=== PATIENT | male | born 1980 | race Caucasian/White ===

== ENCOUNTER 2020-09-24 13:34 | Outpatient (REF) | payer OTHER, SELFPAY | END 2020-09-24 13:35 | disposition home or self-care (01) | LOC: HO.BBR 13:34 | PROVIDERS: PCP Hospitalist; Visit Provider Internal Medicine | DX: Z13.89 Encounter for screening for other disorder (principal) ==

== ENCOUNTER 2020-09-24 14:49 | Outpatient (REF) | payer SELFPAY ==
[2020-09-24 16:23] LABS: Cholesterol 194 mg/dL
== END 2020-09-24 14:50 | disposition home or self-care (01) ==
LOC: HO.LNC 14:49
PROVIDERS: Visit Provider Pathology Anatomic Pathology & Clinical Pathology
DX: Z13.89 Encounter for screening for other disorder (principal)
CPT/HCPCS: 36415; 82465

== ENCOUNTER 2021-04-01 14:03 | Outpatient (REF) | payer OTHER, SELFPAY | END 2021-04-01 14:04 | disposition home or self-care (01) | LOC: HO.BBR 14:03 | PROVIDERS: PCP Hospitalist; Visit Provider Internal Medicine | DX: Z13.89 Encounter for screening for other disorder (principal) ==

== ENCOUNTER 2022-06-04 10:52 | Outpatient (REF) | payer OTHER, SELFPAY | END 2022-06-04 10:53 | disposition home or self-care (01) | LOC: HO.BBR 10:52 | PROVIDERS: Visit Provider Internal Medicine | DX: Z13.89 Encounter for screening for other disorder (principal) ==

== ENCOUNTER 2022-10-30 13:54 | Outpatient (REF) | payer OTHER, SELFPAY | END 2022-10-30 13:55 | disposition home or self-care (01) | LOC: HO.BBR 13:54 | PROVIDERS: PCP Hospitalist; Visit Provider Internal Medicine | DX: Z13.89 Encounter for screening for other disorder (principal) ==

== ENCOUNTER 2023-03-12 11:57 | Outpatient (REF) | payer OTHER, SELFPAY | END 2023-03-12 11:58 | disposition home or self-care (01) | LOC: HO.BBR 11:57 | PROVIDERS: PCP Hospitalist; Visit Provider Internal Medicine | DX: Z13.89 Encounter for screening for other disorder (principal) ==

== ENCOUNTER 2023-10-15 13:59 | Outpatient (REF) | payer OTHER, SELFPAY | END 2023-10-15 14:00 | disposition home or self-care (01) | LOC: HO.BBR 13:59 | PROVIDERS: PCP Hospitalist; Visit Provider Internal Medicine | DX: Z13.89 Encounter for screening for other disorder (principal) ==

== ENCOUNTER 2024-04-07 12:53 | Outpatient (REF) | payer OTHER, SELFPAY | END 2024-04-07 12:54 | disposition home or self-care (01) | LOC: HO.BBR 12:53 | PROVIDERS: PCP Hospitalist; Visit Provider Internal Medicine | DX: Z13.89 Encounter for screening for other disorder (principal) ==

== ENCOUNTER 2024-09-08 14:52 | Outpatient (REF) | payer OTHER, SELFPAY | END 2024-09-08 14:53 | disposition home or self-care (01) | LOC: HO.BBR 14:52 | PROVIDERS: PCP Hospitalist; Visit Provider Internal Medicine | DX: Z13.89 Encounter for screening for other disorder (principal) ==

== ENCOUNTER 2025-04-27 13:59 | Outpatient (REF) | payer OTHER, SELFPAY ==
--- OUTSIDE RECORDS SUMMARY | 2024-05-24 11:08 | XMS_ITS | Encounter Summary ---
Author Organization [facility] Address [address] [place] [address] Care Team Providers Care Communications Associate Name Role Phone Bear Freitas MD Primary Care Provider [phone] Encounter Details Date Type Department Care Team (Late st Contact Info) Description 05/24/2024 11:08 AM EDT Hospital Encounter TH HISTORIC ENCOUNTERS [facility] ONLY Madison Gaspar MD [address] [place] [address] Social History Tobacco Use Types Packs/Day Years Used Date Smoking Tobacco: Never Smokeless Tobacco: Never Alcohol Use Standard Drinks/Week Comments Yes 0 (1 standard drink = 0.6 oz pur e alcohol) Sex and Gender Information Value Date Recorded Sex Assigned at Not on file Legal Sex Male 6:24 PM EST Gender Identity Not on file Sexual Orientation Not on file documented as of this encounter Last Filed Vital Signs Vital Sign Reading Time Taken Comments Blood Pressure 115/77 05/24/2024 11:51 AM EDT Sitting Left arm Pulse 80 05/24/2024 11:51 AM EDT Temperature - - Respiratory Rate - - Oxygen Saturation - - Inhaled Oxygen Concentration - - Weight 89.6 kg (197 lb 9.6 oz) 05/24/2024 11:51 AM EDT Height 182.9 cm (6') 08/30/2020 9:48 AM EST Body Mass Index 26.8 08/30/2020 9:48 AM EST documented in this encounter Progress Notes * Madison Gaspar MD - 05/24/2024 11:30 AM EDT CHIEF COMPLAINT: Follow-up IDENTIFIER:Angel Mccarthy is a 43 y.o. male. HPI: Patient is a very pleasant 43-year-old man, who has homozygous gene mutation for hemochromatosis gene (C282Y), has been on therapeutic phlebotomy every 6 months, tolerating without any major issues, recent labs showed normal iron stores as well as liver function ROS: GENERAL: No anorexia, weight loss, fatigue, fever, chills, night sweats HEENT: no headache or any visual symptom NECK: No discomfort or lumps. RESPIRATORY: No cough or shortness of breath CARDIOVASCULAR: No chest pain. GI: No abdominal discomfort, blood in stools or black stools MUSCULOSKELETAL: No joint pain or swelling, back pain, or muscle pain. HEMATOLOGY/LYMPHOLOGY No prolonged bleeding, easy bruisability or swollen nodes EXT: no significant swelling rash discomfort PAST MEDICAL HISTORY: Hemochromatosis Lumbar radiculopathy ?? SOCIAL HISTORY: Never smoker Drinks socially lives with his family ?? FAMILY HISTORY: Hemochromatosis No current outpatient medications on file. You are allergic to the following Date Reviewed: 05/24/2024 No active allergies PHYSICAL EXAM: BP 115/77 (BP Location: Left arm) Pulse 80 Temp 97.8 ??F (36.6 ??C) (Temporal) Wt 89.6 kg (197 lb 9.6 oz) SpO2 100% BMI 26.80 kg/m?? ECOG 0 APPEARANCE: Alert and in no acute distress EYES: nonicteric sclera pink conjunctiva ORAL CAVITY: No erythema or exudates NECK: Neck supple, no adenopathy, HEART: normal S1 and S2 LUNG: clear to auscultation bilaterally LYMPH NODES: No palpable superficial adenopathy ABDOMEN: soft, nontender and no organomegaly appreciated EXTREMITIES: Extremities warm and well perfused without clubbing, cyanosis, rash or edema NEURO: Oriented X 3, no significant neuro deficit LABS: WBC 6.9, hemoglobin 13.7 g, hematocrit 41.1%, MCV 96 and platelet count 219 TIBC 221, iron saturation 56% and ferritin 89 Normal liver function tests IMPRESSION: SNOMED CT(R) 1. Hereditary hemochromatosis (HCC) HEREDITARY HEMOCHROMATOSIS Patient is a very pleasant 43-year-old man who is very healthy has homozygous gene mutation for hemochromatosis (C282Y) patient has been on therapeutic phlebotomy every 6 months, toleratingwithout any major issues, I discussed with the patient again in detail about overload of iron and potential endorgan damage, his liver function is normal he has been tolerating phlebotomy every 6 months with decent control of his iron store as well as without any significant anemia so decision madeto continue therapeutic phlebotomy every 6 months PLAN: We will continue therapeutic phlebotomy every 6 months Return to office in 1 year or as needed Madison Gaspar MD documented in this encounter Plan of Treatment Upcoming Encounters Date Type Department Care Team (Late st Contact Info) Description 05/24/2025 11:30 AM EDT Office Visit [facility] Hematology Oncology [address] [place] [address] Madison Gaspar MD [address] [place] [address] documented as of this encounter Procedures Procedure Name Priority Date/Time Associated Diagnosis Comments ..MISCELLANEOUS REFERENCE LAB TEST 05/24/2024 ..MISCELLANEOUS REFERENCE LAB TEST 05/24/2024 documented in this encounter Results * Miscellaneous reference lab test (05/24/2024) Provider Onbase MD LAB BLOOD ORDERABLES Final Re sult * Miscellaneous reference lab test (05/24/2024) Provider Onbase MD LAB BLOOD ORDERABLES Final Re sult documented in this encounter Visit Diagnoses Not on filedocumented in this encounter Care Teams Communications Associate Relationship Specialty Start Date End Date Bear Freitas MD [address] [place] [id number] PCP - General Internal Medicine 07/03/20 documented as of this encounter
--- OUTSIDE RECORDS SUMMARY | 2025-04-27 14:35 | XMS_ITS | Clinical Summary ---
Author Organization [facility] Address [address] [place] [address] Care Team Providers Care Sea Foam Kiss Maker Name Role Phone Bear Freitas MD Primary Care Provider [phone] Social History Tobacco Use Types Packs/Day Years Used Date Smoking Tobacco: Never Smokeless Tobacco: Never Alcohol Use Standard Drinks/Week Comments Yes 0 (1 standard drink = 0.6 oz pur e alcohol) Sex and Gender Information Value Date Recorded Sex Assigned at Not on file Legal Sex Male 6:24 PM EST Gender Identity Not on file Sexual Orientation Not on file Obstetrics History Last Filed Vital Signs Vital Sign Reading [...] Mass Index 26.8 08/30/2020 9:48 AM EST Plan of Treatment Upcoming Encounters Date Type Department Care Team (Late st Contact Info) Description 05/24/2025 11:30 AM EDT Office Visit [facility] Hematology Oncology [address] [place] [address] Madison Gaspar MD [address] [place] [address] Health Maintenance Due Date Last Done Comments DTaP,Tdap,and Td Vaccines (1 - Tdap) 10/27/1999 Hepatitis B Vaccines (1 of 3 - 19+ 3-dose series) 10/27/1999 Cholesterol Screening (Lipid Panel) 08/01/2022 HIV Screening 08/01/2022 Hepatitis C Screening 08/01/2022 Medicare Annual Wellness Visit 08/01/2022 Social Influencers of Health Screening 08/01/2022 Depression Screening 08/23/2024 COVID-19 Vaccine (1 - 2023-2 5 season) 2025 Influenza Vaccine (#1) 2025 HIB Vaccines Aged Out No longer eligi ble based on patient's age to complete this topic HPV Vaccines Aged Out No longer eligi ble based on patient's age to complete this topic Hepatitis A Vaccines Aged Out No long er eligible based on patient's age to complete this topic IPV Vaccines Aged Out No longer eligi ble based on patient's age to complete this topic MMR Vaccines Aged Out No longer eligi ble based on patient's age to complete this topic Meningococcal ACWY Vaccine Aged Out N o longer eligible based on patient's age to complete this topic Meningococcal B Vaccine Aged Out No l onger eligible based on patient's age to complete this topic Pneumococcal Vaccine: Pediat rics (0 to 5 Years) and At-Risk Patients (6 to 49 Years) Aged Out No longer eligible b ased on patient's age to complete this topic RSV Immunization Patients Un luis fern[place] 20 months Aged Out No longer eligible b ased on patient's age to complete this topic Varicella Vaccines Aged Out No longer eligible based on patient's age to complete this topic Insurance [facility] MEDICARE ADVANTAGE Care Teams Sea Foam Kiss Maker Relationship Specialty Start Date End Date Bear Freitas MD [address] [place] [address] PCP - General Internal Medicine 07/03/20
--- OUTSIDE RECORDS SUMMARY | 2025-04-27 14:35 | XMS_ITS | Clinical Summary ---
Author Organization [facility] Address [address] [place] [address] Care Team Providers Care Hvac Service Tech Name Role Phone Bear Freitas MD Primary Care Provider [phone] Allergies No known active allergies Medications No known medications Active Problems No known active problems Social History Tobacco Use Types Packs/Day Years Used Date Smoking Tobacco: Never Smokeless Tobacco: Never Alcohol Use Standard Drinks/Week Comments Yes 0 (1 standard drink = 0.6 oz pur e alcohol) social Sex and Gender Information Value Date Recorded Sex Assigned at Not on file Gender Identity Not on file Sexual Orientation Not on file Job Start Date Occupation Industry Not on file Not on file Not on file Last Filed Vital Signs Vital Sign Reading Time Taken Comments Blood Pressure 115/77 05/24/2024 11:51 AM EDT Pulse 80 05/24/2024 11:51 AM EDT Temperature 36.6 C (97.8 F) 05/24/2024 11:51 AM EDT Respiratory Rate - - Oxygen Saturation 100% 05/24/2024 11:51 AM EDT Inhaled Oxygen Concentration - - Weight 89.6 kg (197 lb 9.6 oz) 05/24/2024 11:51 AM EDT Height 182.9 cm (6') 08/30/2020 9:48 AM EST Body Mass Index 26.8 08/30/2020 9:48 AM EST Plan of Treatment Health Maintenance Due Date Last Done Comments Hepatitis B Vaccines (1 of 3 - 3-dose series) 1980 Hepatitis C Screening 1980 COVID-19 Vaccine (#1) 04/28/1981 Depression Screening 1992 Preventative Health Evaluation 1998 DTap / Tdap / Td (1 - Tdap) 10/27/1999 Influenza Vaccine (#1) 2025 Pneumococcal Vaccine Aged Out No long er eligible based on patient's age to complete this topic RSV Ped < 20 months Aged Out No longe r eligible based on patient's age to complete this topic Insurance Payer Benefit Plan / Group Subscriber ID Effective Dates Phone Address [facility] [id number] 2021-Present [address] [facility] [address] [place] [address] O Care Teams Hvac Service Tech Relationship Specialty Start Date End Date Bear Freitas MD [address] [place] [address] PCP - General Internal Medicine 07/03/20
--- OUTSIDE RECORDS SUMMARY | 2025-04-27 14:35 | XMS_ITS | Patient Health Record ---
Author Organization [employer] Address [address] [place] [address] Care Team Providers Care Papier Mache' Molder Name Role Phone JEREMI MCCLENDON Primary Care Provider [phone] Muriel Neumann Unavailable [phone] Alessia Arredondo Unavailable [phone] Allergies No Known Allergies Results Component Value Reference Range Notes CBC Reviewed date:05/10/2024 11:33:37 AM Interpretation: Performing Lab: Notes/Report: Original Ordering Provider: JUAN GASPAR MD [employer], a member of [address] [address] [employer] - Angelique Preciado MD WBC 6.9 4.8-10.8 x10-3/uL RBC 4.3 4.5-5.5 x10-6/uL HEMOGLOBIN 13.7 13.5-17.5 g/dL HEMATOCRIT 41.1 42-54 % MCV 96.3 79-98 fL MCH 32.1 27-32 pg MCHC 33.3 32-37 g/dL RDW 11.6 11-15 % PLT COUNT 290 130-400 x10-3/uL MEAN PLATELET VOLUME 10.2 7-11 fL NRBC % AUTO 0.0 <1 % NRBC # AUTO 0.00 <0.1 x10-3/uL TOTAL IRON BINDING CAPACITY Reviewed date:05/10/2024 11:33:42 AM Interpretation: Performing Lab: Notes/Report: TOTAL IRON BINDING CAPACITY 221 250-450 ug/dL IRON (FE) 123 50-160 ug/dL % FE SATURATION 56 20-50 % FERRITIN Reviewed date:05/10/2024 11:33:39 AM Interpretation: Performing Lab: Notes/Report: [employer], a member of [address] [address] [employer]lar [employer] - Angelique Preciado MD FERRITIN 89 26-388 ng/mL LIVER PANEL Reviewed date:05/10/2024 11:33:46 AM Interpretation: Performing Lab: Notes/Report: Original Ordering Provider: JUAN GASPAR MD TOTAL PROTEIN 7.4 6.0-8.0 G/dL ALBUMIN 4.1 3.2-5.0 G/dL BILI,TOTAL 0.5 0.0-1.4 mg/dL BILI,DIRECT 0.2 0.0-0.3 mg/dL BILI,INDIRECT 0.3 0.0-1.1 mg/dL SGOT 15 10-42 U/L SGPT 20 10-60 U/L ALK PHOS 76 42-121 U/L Reason For Referral Reason severe cervical spin e radiating pain may need cortisone injection Please evaluate and treat Diagnosis 1 Cervicalgia (M54.2) Referral Organization [facility] Referring Provider First Name Muriel Referring Provider Last Name Nel Referring Provider Speciality Internal M edicine Referred Provider Specialty Orthopedic S urgery General Notes Please call the sheila ent to schedule the appointment, Laly Tyson 11/15/2024 04:10:08 PM > Referral Priority Routine Reason Please evaluate and treat; Diagnosis 1 Calculus of kidney ( N20.0) Diagnosis 2 Hereditary hemochrom atosis (E83.110) Diagnosis 3 Low back pain (M54.5 ) Referral Organization [facility] Referring Provider First Name JEREMI Referring Provider Last Name DANELLE Referring Provider Speciality Internal edicine Referred Provider Specialty Urology General Notes Faxed to [facility]. Please contact the patient to schedule., Kandi Hanna 12/28/2024 03:20:18 PM > Referral Priority Stat Medications Medication SIG (Take, Route, Frequency, Duration) Notes Start Date End Date Status tiZANidine HCl 4 MG 1 tablet as needed O rally Three times a day; Duration: 7 days 01/23/2020 Active Cyclobenzaprine HCl 7.5 MG 1 tablet at b edtime Orally Once a day; Duration: 30 days 06/23/2024 Active Cyclobenzaprine HCl 10 MG 1 tablet at be dtime as needed Orally Once a day; Duration: 7 days Active predniSONE 20 MG 2 tablet with food o r milk Orally Once a day; Duration: 5 days Active Immunizations Vaccine Route Administration Date Status Comme nts COVID Moderna Unknown 12/05/2020 Administered COVID Moderna Unknown 01/02/2021 Administered Flublok 00289 IM Intramuscular 07/24/2024 Administered Fluzone QD IM Intramuscular 06/23/2022 Administered Fluzone QD IM Intramuscular 07/19/2023 Administered Influenza, high dose seasonal Unknown 05/23/2019 Administered TDAP Unknown 09/16/2012 Administered TDAP IM Intramuscular 07/24/2024 Administered Social History Tobacco Use: Social History Observation Description Date Details (start date - stop date) Never Smoker NA - NA Tobacco Use/Smoking Question Answer Notes Are you a nonsmoker Alcohol Screen (Audit-C) Question Answer Notes Did you have a drink contain ing alcohol in the past year? Yes How often did you have a dri nk containing alcohol in the past year? Monthly or less (1 point) Points 1 Interpretation Negative Problems Problem Type SNOMED Code ICD Code Onset Dates Problem Status W/U Status Risk Notes Problem Mixed hyperlipidemia (603270261) Mixed hyperlipidemia (E78.2) Active confirmed Problem Hereditary hemochromatosis (20147022) Hereditary hemochromatosis (E83.110) Active confirmed Problem Pain of ear (finding) (575400768) Otalgia, unspecified ear (H92.09) Active confirmed Problem Cervical disc disorder (954663393) Cervical disc disorder, unspecified, unspecified cervical region (M50.90) Active confirmed Problem Cervicalgia (26964827) Cervicalgia (M54.2) Active confirmed Problem Calculus of kidney (93940094) Calculus of kidney (N20.0) Active confirmed Problem Adult health examination (099978798) Encounter for general adult medical examination without abnormal findings (Z00.00) Active confirmed Vital Signs Heart Rate 83 /min 12/29/2024 Temperature 96.4 degrees Fahrenheit 12/29/2024 Oximetry 98 % 12/29/2024 Blood pressure diastolic 70 mm Hg 12/29/2024 Height 72.87 in 12/29/2024 Blood pressure systolic 124 mm Hg 12/29/2024 Weight 191.7 lbs 12/29/2024 BMI 25.38 kg/m2 12/29/2024 Encounters Encounter Location Date Provider Diagnosis [address] [place] [address] 06/23/2024 Ghadeer Mitchloum Throat pain R07.0 an d Bilateral temporomandibular joint disorder, unspecified M26.[address] [place] [address] 07/24/2024 JEREMI MCCLENDON Encounter for genera l adult medical examination without abnormal findings Z00.00 ; Hereditary hemochromatosis E83.110 and Encounter for immunization Z23 [address] [address] 11/02/2024 Muriel Neumann Cervical disc disord er, unspecified, unspecified cervical region M50.[address] [place] [address] 12/29/2024 JEREMI MCCLENDON Strain of muscle, fa scia and tendon of lower back, initial encounter S39.012A [address] [place] [address] 07/15/2024 Alessia Shieldsum [address] [place] [address] 12/28/2024 JEREMI MCCLENDON [address] [address] 06/29/2024 JEREMI MCCLENDON Assessments Encounter Date Diagnosis (ICD Code) Assessment Notes Treatment Notes Treatment Clinical Notes Section Notes 11/02/2024 Cervical disc disorder, unspecified, unspecified cervical region (ICD-10 - M50.90) 44-year-old gentleman here today for severe uncontrolled neck pain radiating to his left shoulder and scapular area Plan as following Cervical spine pain, left shoulder pain, most likely he has cervical arthritis no evidence of radiculopathy as sensation and strength is intact but range of motion is restricted. pain in the subscapular area is most likely radiating pain from his neck Will obtain basic cervical spine x-ray to rule out any disc disease. We will give him prednisone 40 mg daily for 5 days, we will also replace tizanidine with cyclobenzaprine 10 mg daily to be taken at night and to continue with ibuprofen 800 mg twice a day. Patient has recurrent cervical spine pain, will make a referral to orthopedics as he may benefit from a cortisone injection. once his pain is under control he may benefit from outpatient physical therapy Plan was discussed with patient in detail 12/29/2024 Strain of muscle, fascia and tendon of lower back, initial encounter (ICD-10 - S39.012A) 44-year-old gentleman here today for left SI joint pain and history of renal calculi in the past. Plan as following. Pain left sacroiliac joint. Pain on palpation left sacroiliac joint. He has history of cervical disc disorder. He also has hemochromatosis which also put him slightly at high risk for inflammation. We advised anti-inflammatory/T ylenol arthritis. He is not interested in prednisone or muscle relaxers at this point in time. Advised home stretching exercises and he will benefit from physical therapy if he is interested. Kidney stones. He does not have urinary symptoms and signs and symptoms of pain are from SI joint inflammation. 07/24/2024 Encounter for general adult medical examination without abnormal findings (ICD-10 - Z00.00) Mr. Mccarthy is a 43 year old gentleman with hemochromatosis here for annual physical. Plan is as follows: Hemochromatosis. He sees Dr. Gaspar and next phlebotomy is scheduled for September. Avoid heavy doses of NSAIDs. Globus sensations in the back of the throat. It has improved and it happened after he had an apple which might have scratched his upper GI. No need to take PPIs Class 1 obesity. He is on low-dose compounded GLP-1 0.5 mg with no side effects. Advised dietary restrictions and regular exercise. Goal is to lose 4-6 lbs a month. Eye screening. He sees his cell tuber machine regularly. Dental screening. He sees dentist regularly. Immunizations. He completed his COVID-19 vaccine. TDAP and Flu shot administered in the office today. Screening blood work before next appointment. General health concerns discussed with patient. Scribe services used to formulate this note under HIPAA compliance and under [place] law mandated for scribe services. Patient aware of service. Verbal consent and written consent taken from the patient. Patient understands and verbalizes understanding of the scribes services and all questions answered regarding scribes services. Patient agrees to use of scribes services. 06/23/2024 Bilateral temporomandibular joint disorder, unspecified (ICD-10 - M26.603) Mr. Mccarthy is a 43 year old gentleman with hemochromatosis here complaining of sharp pain in his throat. He states that it started on Wednesday abruptly after he had apple sauce and capsule multivitamin supplement. Plan As follows Throat pain - We will do a trial of pantoprazole to rule out GERD, otherwise exam is normal no lymphadenopathies were appreciated, Hypoglossal nerve is intact. We will follow up in 1 week. Bilateral TMJ - Popping sensation is noted on exam. Mouthguard is advised. Started patient on Flexeril. I have rendered the services for this patient under direct supervision of Dr. Mcclendon, who did not see the patient but was consulted 06/23/2024 Throat pain (ICD-10 - R07.0) Mr. Mccarthy is a 43 year old gentleman with hemochromatosis here complaining of sharp pain in his throat. He states that it started on Wednesday abruptly after he had apple sauce and capsule multivitamin supplement. Plan As follows Throat pain - We will do a trial of pantoprazole to rule out GERD, otherwise exam is normal no lymphadenopathies were appreciated, Hypoglossal nerve is intact. We will follow up in 1 week. Bilateral TMJ - Popping sensation is noted on exam. Mouthguard is advised. Started patient on Flexeril. I have rendered the services for this patient under direct supervision of Dr. Mcclendon, who did not see the patient but was consulted 07/24/2024 Hereditary hemochromatosis (ICD-10 - E83.110) Mr. Mccarthy is a 43 year old gentleman with hemochromatosis here for annual physical. Plan is as follows: Hemochromatosis. He sees Dr. Gaspar and next phlebotomy is scheduled for September. Avoid heavy doses of NSAIDs. Globus sensations in the back of the throat. It has improved and it happened after he had an apple which might have scratched his upper GI. No need to take PPIs Class 1 obesity. He is on low-dose compounded GLP-1 0.5 mg with no side effects. Advised dietary restrictions and regular exercise. Goal is to lose 4-6 lbs a month. Eye screening. He sees his cell tuber machine regularly. Dental screening. He sees dentist regularly. Immunizations. He completed his COVID-19 vaccine. TDAP and Flu shot administered in the office today. Screening blood work before next appointment. General health concerns discussed with patient. Scribe services used to formulate this note under HIPAA compliance and under [place] law mandated for scribe services. Patient aware of service. Verbal consent and written consent taken from the patient. Patient understands and verbalizes understanding of the scribes services and all questions answered regarding scribes services. Patient agrees to use of scribes services. 07/24/2024 Encounter for immunization (ICD-10 - Z23) Mr. Mccarthy is a 43 year old gentleman with hemochromatosis here for annual physical. Plan is as follows: Hemochromatosis. He sees Dr. Gaspar and next phlebotomy is scheduled for September. Avoid heavy doses of NSAIDs. Globus sensations in the back of the throat. It has improved and it happened after he had an apple which might have scratched his upper GI. No need to take PPIs Class 1 obesity. He is on low-dose compounded GLP-1 0.5 mg with no side effects. Advised dietary restrictions and regular exercise. Goal is to lose 4-6 lbs a month. Eye screening. He sees his cell tuber machine regularly. Dental screening. He sees dentist regularly. Immunizations. He completed his COVID-19 vaccine. TDAP and Flu shot administered in the office today. Screening blood work before next appointment. General health concerns discussed with patient. Scribe services used to formulate this note under HIPAA compliance and under [place] law mandated for scribe services. Patient aware of service. Verbal consent and written consent taken from the patient. Patient understands and verbalizes understanding of the scribes services and all questions answered regarding scribes services. Patient agrees to use of scribes services. Plan Of Treatment Pending Test Test Name Order Date Xray: Spine/Cervical-Min 4 Vws 5 Future Test Test Name Order Date CBC (COMPLETE BLOOD COUNT) 07/15/2022 COMPREHENSIVE METABOLIC PANEL 07/16/2022 LIPID PANEL 07/16/2022 COMPREHENSIVE METABOLIC PANEL 07/19/2023 LIPID PANEL 07/19/2023 Lipid Panel-[id number] 07/24/2024 Comp. Metabolic Panel [id number] 2023 Next Appt Details Provider Name:JEREMI MCCLENDON , 08/07/2025 03:00:00 PM, [address] [place] [address], [phone], Insurance Providers Payer Name Payer Address Payer Phone Subscriber Number Group Number Insured Name Patient Relationship to Insured Coverage Start Date Coverage End Date [facility] [address] [place] [address] [id number] Angel Mccarthy Self - patient is the insured 4 Medical (General) History Medical History History ICD Code low back pain Hemochromatosis, follows up with Dr. Eliseo puga Surgical History Surgery Date(Month/Year) kidney stones
== END 2025-04-27 14:00 | disposition home or self-care (01) ==
LOC: HO.BBR 13:59
PROVIDERS: PCP Hospitalist; Visit Provider Internal Medicine
DX: Z13.89 Encounter for screening for other disorder (principal)